=== PATIENT | male | born 1980 | race Caucasian/White ===

== ENCOUNTER 2022-03-18 12:38 | Emergency (ER) | payer BC, SELFPAY ==
[2022-03-18 12:44] VITALS: BP 140/92; PULSE 73; RESP 16; TEMP 36.8; O2SAT 100
[2022-03-18 13:00] VITALS: BP 140/92; PULSE 73; RESP 16; TEMP 36.8; O2SAT 100
--- NOTE | 2022-03-18 13:52 | ED.DENTAL ---
HPI - Dental/Oral General Chief complaint: Dental/Oral Stated complaint: swollen and painful jaw Time Seen by Provider: 03/18/22 13:15 Source: patient, RN notes reviewed and old records reviewed Mode of arrival: ambulatory Limitations: no limitations History of Present Illness HPI Narrative: 42-year-old male who presents to [facility] care with complaints of dental pain on the right lower jaw with some swelling noted to his face for the past 3 days. Patient is from out of town visiting for relative wedding. Patient reports that he has had dental problems in past with missing teeth noted and noted broken #31 tooth with redness around gum. Patient denies any difficulty with his breathing or any trouble with swallowing no trismus noted. MD Complaint: tooth pain Location: Tooth # (31) Onset (ago): day(s) (3) Treatment prior to arrival: oral analgesic Related Data Allergies Allergy/AdvReac Type Severity Reaction Status Date / Time No Known Allergies Allergy Verified 03/18/22 13:00 Review of Systems Review of Systems: CONSTITUTIONAL: Denies fever, chills, or sweats. EYES: Denies visual changes, redness, or discharge. ENT: Denies rhinorrhea, congestion, sore throat, or otalgia.positive for right lower jaw dental pain and facial swelling CARDIOVASCULAR: Denies chest pain, palpitations, or edema. RESPIRATORY: Denies cough or dyspnea. GASTROINTESTINAL: Denies abdominal pain, nausea, vomiting, or diarrhea. GENITOURINARY: Denies dysuria or hematuria. SKIN: Denies rash or itching. MUSCULOSKELETAL: Denies back pain, joint pain, or myalgia. NEUROLOGIC: Denies headache, numbness, or weakness. PSYCHIATRIC: Denies anxiety or depression. All systems reviewed & are unremarkable except as noted in HPI and below [facility] Past Medical History Medical History (Updated 03/21/22 @ 13:27 by Harriet Ellis NP) Fracture of left knee region History of dental problems Jaw fracture Surgical History Surgical History (Updated 03/21/22 @ 13:27 by Harriet Ellis NP) History of colon resection Social History Social History (Updated 03/21/22 @ 13:28 by Harriet Ellis NP) Smoking packs per day: 1 Smoking cigarettes per day: 20.0 Years smoked: 24 Smoking pack-years: 24.00 Smoking status: Current every day smoker Alcohol intake: current Alcohol use details: social Substance use type: does not use Living arrangements: with family Gender identity (if verbalized by the patient): Male Comments At time of signature, agree with nursing past medical, surgical, social and family history. There is no relevant family history pertinent to the presenting complaint Exam Narrative: GENERAL: Well-appearing, well-nourished, and in no acute distress. HEAD: Normocephalic, atraumatic. EYES: PERRLA and EOMI. ENT: Nares clear, no rhinorrhea or epistaxis. Mucous membranes moist.TM's normal with good light reflex, throat pink no lesions or exudates, no tonsil swelling, broken #31 tooth with redness of gum around tooth no drainage noted facial swelling present.No trismus or Sandoval angina CHEST: Clear to auscultation. No respiratory distress.SAO2 100% on room air HEART: Regular rate and rhythm. No murmur heard. Normal peripheral pulses. ABDOMEN: Soft, nontender, nondistended, normal active bowel sounds. EXTREMITIES: Normal range of motion. No edema. SKIN: Warm, dry, no rash. NEURO: No focal deficits. Alert and oriented x3. Course Course Level of Care: Express Care Visit Vital Signs Vital signs: Vital Signs Temperature 36.8 C 03/18/22 12:44 Pulse Rate 73 03/18/22 12:44 Respiratory Rate 16 03/18/22 12:44 Blood Pressure 140/92 H 03/18/22 12:44 Pulse Oximetry 100 03/18/22 12:44 Oxygen Delivery Room Air 03/18/22 12:44 Temperature 36.8 C 03/18/22 13:00 Pulse Rate 73 03/18/22 13:00 Respiratory Rate 16 03/18/22 13:00 Blood Pressure 140/92 H 03/18/22 13:00 Pulse Oximetry 100 03/18/22 13:00 Oxygen Delivery
== END 2022-03-18 14:01 | disposition home or self-care (01) ==
PROVIDERS: Emergency Provider Registered Nurse
DX: S02.5XXA Fracture of tooth (traumatic), initial encounter for closed fracture (principal); X58.XXXA Exposure to other specified factors, initial encounter; K04.7 Periapical abscess without sinus; F17.210 Nicotine dependence, cigarettes, uncomplicated
CPT/HCPCS: 99213; G0463